=== PATIENT | female | born 1965 | race Caucasian/White ===

== ENCOUNTER 2016-11-28 11:51 | Emergency (ER) | payer OTHER ==
[~2016-11-28] VITALS: Ht 170.2 cm; Wt 111.4 kg
[~2016-11-28 11:51] MED LIST: CYCLOBENZAPRINE10 MG PO; DESYREL 150 MG150 MG PO; DULOXETINE HCL60 MG PO; FLOMAX0.4 MG PO; HYDROCODONE; INDERAL LA120 MG PO; KLONOPIN0.5 M1 PO; LORTAB 5-325 M1 EACH PO; MOTRIN800 MG PO; NAPROSYN500 MG PO; NEURONTIN100 MG PO; PROPRANOLOL HCL10 MG PO; ULTRAM50 MG PO; VITAMIN D5000 UNIT PO; WELLBUTRIN XL150 MG PO; ZOFRAN ODT4 MG PO; ZYRTEC10 M3 PO; [UNRECOGNIZED DRUG - REMARK] PO
[2016-11-28 16:09] VITALS: BP 151/86
== END 2016-11-28 16:10 | disposition home or self-care (01) ==
LOC: EME 11:51
DX: M25.561 Pain in right knee (principal); G89.29 Other chronic pain; E66.9 Obesity, unspecified; Z68.38 Body mass index [BMI] 38.0-38.9, adult
CPT/HCPCS: 73564; 99281; 99284

== ENCOUNTER 2016-12-03 10:42 | Emergency (ER) | payer OTHER ==
[~2016-12-03] VITALS: Ht 170.2 cm; Wt 111.3 kg
[2016-12-03 11:57] LABS: HEMATOCRIT 39.1 % (36.0-46.0); MCH 28.3 PG (29.0-34.0); MCHC 33.5 G/DL (30.0-36.0); MCV 84.4 FL (83-99); MEAN PLAT.VOLUME 9.2 uM^3 (9.5-12.4); PLATELET COUNT 213 K/uL (156-360); RBC DIS.WIDTH-CV 12.6 % (11.8-14.6); RBC DIS.WIDTH-SD 38.5 % (39-53); RED BLOOD COUNT 4.63 M/uL (3.80-5.20); WHITE BLOOD COUNT 6.4 K/uL (4.1-10.2)
[2016-12-03 12:22] LABS: CHLORIDE 106 mEq/L (99-109); POTASSIUM 3.9 mEq/L (3.7-5.4); SODIUM 141 mEq/L (136-147)
[2016-12-03 12:23] LABS: GLUCOSE 121 mg/dL (70-99)
[2016-12-03 12:25] LABS: ANION GAP 10 MEQ/L (2-14)
[2016-12-03 12:27] LABS: GFR ESTIMATE (CALCULATED) > 59 mL/min/
[2016-12-03 12:28] LABS: UREA NITROGEN (BUN) 14 mg/dL (9-23)
[2016-12-03 14:36] VITALS: BP 123/83
== END 2016-12-03 14:37 | disposition home or self-care (01) ==
LOC: EME 10:42
PROVIDERS: Emergency Medicine
DX: S00.83XA Contusion of other part of head, initial encounter (principal); S09.90XA Unspecified injury of head, initial encounter; S86.912A Strain of unspecified muscle(s) and tendon(s) at lower leg level, left leg, initial encounter; M25.552 Pain in left hip; W10.9XXA Fall (on) (from) unspecified stairs and steps, initial encounter; M79.7 Fibromyalgia; Z87.442 Personal history of urinary calculi
CPT/HCPCS: 70450; 72125; 73564; 74177; 80048; 81003; 85027; 99281; 99284